=== PATIENT | male | born 1960 | race African-American/Black ===

== ENCOUNTER 2022-07-09 15:32 | Emergency (ER) | payer SELFPAY ==
[~2022-07-09] VITALS: Ht 182.9 cm; Wt 73.0 kg
[2022-07-09 15:39] VITALS: BP 126/83
== END 2022-07-09 16:49 | disposition left against medical advice (07) ==
LOC: ER 15:32
DX: R60.0 Localized edema (principal); G89.29 Other chronic pain; G40.909 Epilepsy, unspecified, not intractable, without status epilepticus; Z88.0 Allergy status to penicillin
CPT/HCPCS: 99283